=== PATIENT | male | born 1945 | race Caucasian/White ===

== ENCOUNTER 2016-04-30 12:57 | Inpatient (IN) | payer MEDICARE ==
--- NOTE | ~2016-04-30 | OP ---
Record Of Operation [facility] [address] [place]. [address] NAME: SAMMI BLANCAS JR : 41 STATUS : ADM IN PAT#: [id number] AGE: 70 ADM/REG DATE : 04/30/16 MR#: [id number] REPORT SERV DATE: 05/02/16 DICTATED BY: JUAN RAMON LIVE DATE: 05/02/16 REPORT STATUS : Draft TRANSCRIBED BY: DANO DATE: 05/02/16 DATE OF PROCEDURE: 05/02/2016 TIME: 1445 hours. PROCEDURE: Ultrasound guided left-sided thoracentesis. INDICATION: Moderate left-sided pleural effusion. PROCEDURE NATURAL SCIENCE CURATOR: Gibson Live PA-C. CONSENT: Consent was obtained from the patient prior to the procedure. Diagnostic and therapeutic indications for thoracentesis were discussed as well as risks including life- threatening bleeding, pneumothorax, and even the possible necessity of chest tube placement. Benefits and alternatives were explained at length. Prior to the procedure, imaging studies were reviewed with Dr. Cho who agreed with the indication to proceed with thoracentesis. PROCEDURE SUMMARY: A time out was performed verifying correct patient, procedure, site, and positioning. The patient's left side of the chest was prepped and draped in a sterile manner using chlorhexidine scrub after the appropriate level was percussed and confirmed by ultrasound. U/S images were obtained and placed within the chart. 2% lidocaine with epinephrine was then used to anesthetize the region. A finder needle was then used to aspirate clear to straw-colored fluid. A 10-blade scalpel was then used to make a small incision. The thoracentesis catheter was then threaded into the pleural space without difficulty. The patient had 825 mL of clear to straw-colored fluid removed. No immediate complications were noted during the procedure. A post-procedure chest x-ray is pending at the time of this dictation. The fluid will be sent for several studies. ESTIMATED BLOOD LOSS: Minimal. GBS/MODL Juan Ramon Live PA-C / [id number] CC: Jatin Carolina MD
--- NOTE | ~2016-04-30 | CN ---
Consultation Report [facility] [address] [place]. [address] NAME: SAMMI MELTON JR : 41 STATUS : ADM IN [facility]#: [id number] AGE: 70 ADM/REG DATE : 04/30/16 MR#: [id number] REPORT SERV DATE: 05/01/16 DICTATED BY: ARTHUR GIMENEZ IV DATE: 05/01/16 REPORT STATUS : Draft TRANSCRIBED BY: DANO DATE: 05/01/16 PULMONARY CONSULTATION. DATE OF CONSULTATION: 05/01/2016 REQUESTING PHYSICIAN: Jatin Carolina MD. REASON FOR REQUEST: Recurrent pleural effusion, dyspnea, and hypoxemia. HISTORY OF PRESENT ILLNESS: History was obtained from the patient and records. Mr. 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 He was admitted with weakness and increased shortness of breath. The patient was first evaluated December with a recurrent right-sided pleural effusion. It was exudative by fluid characteristics. It immediately recurred with evidence for non reexpansion of the lung for which the patient underwent thoracoscopy, with decortication, and talc pleurodesis. This demonstrated chronic pleuritis with all samples demonstrating no malignancy. The patient noted increasing shortness of breath for which he was seen in the outpatient office a week ago, demonstrating what appeared to be posterior recurrent fluid collection. He was supposed to be seen by Dr. Mcfadden last week and missed his appointment. He has a known history of carcinoid tumor in the liver for which he was just started on somatostatin therapy last week. On treatment, he has noted a decrease in the nausea, vomiting, and diarrhea. He has continued to feel very weak with decreased oral intake and increased shortness of breath with that has been more insidious than acute. He has had some increased swelling in his lower extremities without any calf pain. There is no known history of deep venous thrombosis. Because of progressive symptoms, he sought evaluation, he was admitted yesterday. He was initially treated as if he has COPD exacerbation with some comments of wheezing, however, the patient does not carry the diagnosis of obstructive lung disease. He denies any fever, chills, sweats, or hemoptysis. He is not on bronchitis medication. He recently underwent an overnight oximetry which was reportedly abnormal and will require supplemental oxygen at nighttime. PULMONARY HISTORY: Remarkable for no history of childhood asthma or known adult obstructive lung disease. He has had pneumonia in the past. He has a 10 pack year smoking history, having quit approximately 40 years ago. He worked for [employer] with chemical exposures. He is up to date on his immunizations. PAST MEDICAL HISTORY: 1. Carcinoid tumor in the liver. 2. Paroxysmal atrial fibrillation. 3. Chronic kidney disease. 4. Recurrent exudative pleural effusion on the right. PAST SURGICAL HISTORY: Consultation Report [place] [id number] [facility] [place]. [address] NAME: SAMMI MELTON JR : 41 STATUS : ADM IN [facility]#: [id number] AGE: 70 ADM/REG DATE : 04/30/16 MR#: [id number] REPORT SERV DATE: 05/01/16 DICTATED BY: ARTHUR GIMENEZ IV DATE: 05/01/16 REPORT STATUS : Draft TRANSCRIBED BY: DANO DATE: 05/01/16 1. Thoracotomy for resection of a diaphragmatic hernia and diaphragmatic repair. 2. Thoracoscopy with decortication and talc pleurodesis. ALLERGIES: PENICILLIN CAUSES A RASH. CURRENT MEDICATIONS: Cordarone 200 mg at bedtime, prednisone 40 mg daily, DuoNeb every four hours while awake, Flomax 0.4 mg at bedtime, Lomotil 2.5 mg twice a day, Lovenox 40 mg daily, Marinol 2.5 mg daily, and Protonix 40 mg daily. SOCIAL HISTORY: Remarkable for the remote tobacco use as above. He has very rare social alcohol use and no illicit drug use. He is and has four children. FAMILY HISTORY: Remarkable for mother with dementia. Father who of pulmonary embolism. REVIEW OF SYSTEMS: A 14-systems were reviewed and pertinent positives as noted above. PHYSICAL EXAMINATION: GENERAL: This is a chronically ill-appearing, elderly , thin male, in no current distress. VITAL SIGNS: Temperature is 97.5, pulse is 61, respiratory rate is 20, saturations are 97% on 2 L. Blood pressure is 117/64. HEENT: The patient is normocephalic and atraumatic. He has temporal wasting. Extraocular movements are intact. Pupils react to light. He has a nasal cannula in place. He has a Mallampati 2 airway with narrowing of the posterior pharyngeal space. NECK: Without any palpable lymphadenopathy or thyromegaly. CHEST: The patient has a right thoracotomy and thoracoscopy scars on his right chest. He has decreased breath sounds at the right base and approximately third of the way up posteriorly. No crackles, wheezes, or rhonchi are currently noted. CARDIOVASCULAR: Jugular venous pulsations appear to be approximately 5 to 6 cm. He has 2+ carotid upstrokes. No obvious bruit. He has a regular S1 and S2 with a 2/6 systolic murmur at the right upper sternal border to the apex. No clear S3 is noted. Peripheral pulses are diminished. ABDOMEN: Scaphoid, soft, there is a palpable liver. There is no splenomegaly or other masses. EXTREMITIES: Demonstrate muscle wasting. There is no cyanosis, clubbing, or palpable cords. He has 1+ pitting edema. NEUROLOGIC: Strength is 5-/5 and symmetric. Sensation is intact to light touch. LABORATORY AND DIAGNOSTIC DATA: Chest x-ray, as an outpatient demonstrates recurrence of the predominantly posterior medial loculated pleural effusion with an air fluid level. The current chest x-rays with hypoventilatory demonstrates increased hazy density throughout the right hemithorax more than on the previous study. CBC: Hemoglobin is 11.4, hematocrit 34.6, platelet count was 273,000, and white blood cell Consultation Report [address] [place]. [address] NAME: MAGALISSAMMI KALLI HAWK : 41 STATUS : ADM IN [facility]#: [id number] AGE: 70 ADM/REG DATE : 04/30/16 MR#: [id number] REPORT SERV DATE: 05/01/16 DICTATED BY: ARTHUR GIMENEZ IV DATE: 05/01/16 REPORT STATUS : Draft TRANSCRIBED BY: MODMayi DATE: 05/01/16 count 6, procalcitonin level is less than 0.05. Chemistry; sodium 140, potassium 4.5, chloride 108, bicarb 21, BUN 17, creatinine 1.25, and glucose of 133. ASSESSMENT/PLAN: 1. Respiratory. The patient has had some degree of fluid recurrence, we will do a chest CT scan to better define this. Oxygen to be provided as needed to maintain saturation at 90% to 94% range. It is not clear what options we have if there is recurrent fluid though PleurX catheter would be a possibility. There is no history of obstructive lung disease. We will DC the steroids and make DuoNeb as needed. 2. Hematologic. We will obtain a chest CT scan with contrast to rule out pulmonary embolism. The cause for shortness of breath, though, I think this is secondary to the fluid and his overall weakness. Lovenox to be continued for deep vein thrombosis prophylaxis. 3. Renal. He had increased renal insufficiency, on presentation, likely secondary dehydration. This is improved with IV fluids. He will be given Mucomyst x4 doses and we will follow his creatinine with contrast. 4. Neurologic. We will continue the Marinol for his appetite stimulant. Thank you for consulting us. We will follow the patient with you. NM/MODL Arthur Gimenez IV, M.D. / [id number] CC: Jatin Carolina MD
--- NOTE | ~2016-04-30 | HP ---
History And Physical [place] [address] [facility] [place]. [address] NAME: SAMMI BLANCAS JR : 41 STATUS : ADM IN [facility]#: [id number] AGE: 70 ADM/REG DATE : 04/30/16 MR#: [id number] REPORT SERV DATE: 04/30/16 DICTATED BY: SANCHEZ FRYE DATE: 04/30/16 REPORT STATUS : Draft TRANSCRIBED BY: DANO DATE: 04/30/16 DATE OF ADMISSION: 04/30/2016 CHIEF COMPLAINT: Increased shortness of breath. HISTORY OF PRESENT ILLNESS: This patient is a 70-year-old male, who presented to [facility] Emergency Room with complaints of increased shortness of breath ongoing for approximately three weeks, stating that he was unable to rest all night due to discomfort. He does deny any cough, fever, or chills. Does state that he has been having occasional nausea and vomiting. The patient does present with a history of metastatic carcinoid tumor, is followed by Dr. Feliciano Mead of [facility]. Last chemotherapy on 04/19/2016. The patient does state he is followed by his program therapist, Dr. Gimenez, recently. He does state that he is not on O2 at home. The patient does deny any chest pain, abdominal pain. He does state that he has had a 50-pound weight loss over the past 12 months. He does state his last bowel movement was this a.m., normal stool. Does state he has occasional bilateral lower extremity edema. PAST MEDICAL HISTORY: 1. Carcinoid tumor present in liver. 2. Right pleural effusion. 3. Decortication of the right lung. 4. Fatty liver. 5. Chronic kidney disease stage 3. 6. History of atrial fibrillation. PAST SURGICAL HISTORY: 1. Right thoracotomy. 2. Bronchoscopy. 3. Diaphragmatic hernia repair. 4. Intercostal nerve block. REVIEW OF SYSTEMS: Otherwise negative review of systems. PHYSICAL EXAMINATION: VITAL SIGNS: O2 saturation is 95% on room air, respirations are 18, pulse is 77, blood pressure is 115/63. GENERAL: This patient is alert and oriented in no acute distress. HEENT: Normocephalic, mucous membranes are moist. No JVD. CHEST: Breath sounds normal respiratory rate, diminished in the right base. CARDIOVASCULAR: Regular rate and rhythm. No murmurs, rubs, or gallops. ABDOMEN: Soft, nontender to touch. Bowel sounds are active. EXTREMITIES: No cyanosis. Slight edema bilateral. NEURO: The patient is alert and oriented. LABORATORY DATA: WBC is 10.4, hemoglobin 13.7, hematocrit 40.7, platelet count is 361. History And Physical [address] [address] NAME: SAMMI BLANCAS JR : 41 STATUS : ADM IN [facility]#: [id number] AGE: 70 ADM/REG DATE : 04/30/16 MR#: [id number] REPORT SERV DATE: 04/30/16 DICTATED BY: SANCHEZ FRYE DATE: 04/30/16 REPORT STATUS : Draft TRANSCRIBED BY: DANO DATE: 04/30/16 Sodium is 139, potassium is 4.3, chloride is 104, carbon dioxide is 25, BUN is 20, creatinine is 1.54, glucose is 109, calcium is 8.0, magnesium is 2.3, troponin is less than 0.02. Blood gas: PH is 7.44, pCO2 is 35, PO2 is 91, HCO3 is 23, oxygen saturation is 97.1. IMAGING: To be obtained. ASSESSMENT/PLAN: 1. Dyspnea. The patient has had complaints of ongoing shortness of breath increasing over the past three weeks stating that over the past 12 hours he was unable to sleep due to shortness of breath. The patient will be admitted to the hospital, consult pulmonology to see EzPAP provided as well as respiratory support. 2. History of trapped lung. The patient does present with a history of trapped lung. Again, we will have pulmonology to follow the patient. 3. Carcinoid tumor. The patient is under the care of Dr. Feliciano Mead, [facility]. Last chemotherapy 04/19/2016. Will consult Dr. Mead to follow the patient during his hospital stay. 4. Chronic kidney disease stage 3. The patient's noted creatinine of 1.54. We will continue to monitor. 5. History of right pleural effusion. 6. Code. The patient is a limited code. No ventilation. 7. The patient will be followed by Dr. Jatin Carolina during his hospital stay. [facility]/DANO Sanchez Frye NP / [id number]
--- NOTE | ~2016-04-30 | DS ---
Discharge Summary [facility] [address] [place]. [address] NAME: SAMMI BLANCAS JR : 41 STATUS : DIS IN PAT#: [id number] AGE: 70 ADM/REG DATE : 04/30/16 MR#: [id number] REPORT SERV DATE: 05/06/16 DICTATED BY: ROSANGELA PAYNE II DATE: 05/05/16 REPORT STATUS : Draft TRANSCRIBED BY: MODMayi DATE: 05/05/16 ADMISSION DATE: 04/30/2016 DISCHARGE DATE: 05/05/2016 DISCHARGE DIAGNOSES: 1. Acute on chronic hypoxic respiratory failure. 2. Chronic loculated right pleural effusion with history of right decortication. 3. Carcinoid tumor in the liver. 4. Acute kidney injury on chronic kidney disease, stage 2 to 3. 5. Generalized weakness and deconditioning. 6. History of SVT. 7. Edema. PROCEDURES: Left thoracentesis. CONSULTS: 1. Judah Gimenez M.D. with Pulmonary. 2. Feliciano Mead M.D. with [facility]. BRIEF HISTORY OF PRESENT ILLNESS: The patient is a 70-year-old male with the above history, who presented to [facility] due to worsening shortness of breath. For detailed history and physical examination, please see Josy Frye's note from 04/30/2016. HOSPITAL COURSE: Chest x-ray on admission showed stable postoperative volume loss on the right with stable chronic right effusion. Procalcitonin was normal. CTA of his chest showed right pleural fluid with loculations and air in the right lower chest associated with pleural thickening and calcification. There was left pleural fluid, minimal adjacent dependent atelectasis. Dr. Gimenez was consulted, and given the new left pleural effusion, a thoracentesis was done, which was transudative and negative for malignancy. The patient was previously being set up for nocturnal O2, however, currently hypoxic and will need continuous O2. He does have some degree of volume overload as he has edema and a mildly elevated BNP. His creatinine on admission was 1.54, which has come down to 1.15. The patient will be given a daily dose of p.r.n. Lasix for edema, and we will check a BMP in a week. He will be discharged home with home health. Follow up with Dr. Gimenez and Dr. Mead. DISCHARGE MEDICATIONS: 1. Prilosec 40 mg p.o. daily. 2. Flomax 0.4 mg p.o. at bedtime. 3. Zofran p.r.n. 4. Lasix 20 mg p.o. daily p.r.n. edema. 5. Marinol 2.5 mg p.o. before supper. 6. Lomotil 2.5 mg p.o. b.i.d. 7. Amiodarone 200 mg p.o. at bedtime. 8. KCl 20 mEq p.o. daily p.r.n. Lasix. Discharge Summary [address] [address] NAME: SAMMI BLANCAS : 41 STATUS : DIS IN PAT#: [id number] AGE: 70 ADM/REG DATE : 04/30/16 MR#: [id number] REPORT SERV DATE: 05/06/16 DICTATED BY: ROSANGELA PAYNE II DATE: 05/05/16 REPORT STATUS : Draft TRANSCRIBED BY: DANO DATE: 05/05/16 DISCHARGE INSTRUCTIONS: The patient will follow with Dr. Mccord and Dr. Mead as scheduled. [facility]ES/DANO Rosangela Payne II, MD / [id number] CC: Rosangela Payne II, MD
[~2016-04-30 12:57] MED LIST: ACET500CAP PO; CORDARONE PO; COZ25 PO; FLOMAX4 PO; LOM PO; NEXIUM40 PO; NORCO1 TA2 PO; PCET PO; PROBIOTIC; VITC500 PO; ZOFRAN4 PO
[2016-04-30 13:37] LABS: BASOPHILS 0.6 %; BASOPHILS ABSOLUTE 0.06 10/3/uL (0.0-0.16); EOSINOPHILS 0.6 %; EOSINOPHILS ABSOLUTE 0.06 10/3/uL (0.0-0.53); HEMOGLOBIN 13.7 g/dL (13.6-17.8); IMMATURE GRANULOCYTES 0.5 %; IMMATURE GRANULOCYTES ABSOLUTE 0.05 10/3/uL (0.0-0.11); LYMPHOCYTES 7.2 %; LYMPHOCYTES ABSOLUTE 0.75 10/3/uL (0.67-4.30); MEAN CORPUS HGB CONC 33.7 g/dL (32.0-36.0); MEAN CORPUSCULAR HEMOGLOB 29.9 pg (26.0-34.0); MEAN CORPUSCULAR VOLUME 88.9 fL (80-100); MEAN PLATELET VOLUME 9.6 fL (9.2-13.0); MONOCYTES ABSOLUTE 0.94 10/3/uL (0.21-1.20); NEUTROPHILS 82.1 %; NEUTROPHILS ABSOLUTE 8.55 10/3/uL (2.02-8.40); RBC DISTRIBUTION WIDTH 18.4 % (12.0-16.0); RED CELL COUNT 4.58 10/6/uL (4.7-6.1)
[2016-04-30 13:38] LABS: HEMATOCRIT 40.7 % (40.0-51.0); MANUAL DIFF NO %; PLATELET COUNT 361 10/3/uL (150-400); WHITE BLOOD CELLS 10.4 10/3/uL (4.5-10.5)
[2016-04-30 13:45] LABS: INTERNATIONAL NORMAL RATI 1.3 UNITS (-); PARTIAL THROMBO TIME 32.5 SEC (22.5-37.2); PROTIME (NOT ORD) 16.1 SEC (12.0-14.5)
[2016-04-30 13:53] LABS: BUN (BLOOD UREA NITROGEN) 20 MG/DL (6-23); CHEST PAIN PROFILE TAT 0 Hrs 21 Mins; CHLORIDE, SERUM 104 MMOL/L (96-112); CO2 (CARBON DIOXIDE) 25 MMOL/L (24-34); CREATININE 1.54 MG/DL (0.70-1.30); GFR AFRICAN AMERICAN 51 ML/MIN (>=60); GFR NON AFRICAN AMERICAN 44 ML/MIN (>=60); GLUCOSE, SERUM 109 MG/DL (60-99); POTASSIUM, SERUM 4.3 MMOL/L (3.5-5.3); SODIUM, SERUM 139 MMOL/L (135-148); TROPONIN I <0.02 NG/ML (<0.05)
[2016-04-30 15:05] LABS: ALLENS TEST Pos; BE (BASE EXCESS) -0.7 MEQ/L (0 +/- 2.5); CARBOXYHEMOGLOBIN 1.3 % (0-3); DEVICE NC; HEMOBLOGIN CONTENT 12.3 G/DL (14-18); INSTRUMENT SERIAL # 8087; METHEMOGLOBIN 0.3 % (0-3); O2 CONTENT 16.6 VOL% (18-24); PCO2 (CO2 TENSION) 35 MMHG (35-45); PO2 (O2 TENSION) 91 MMHG (79-93); SAMPLE Arterial; pH 7.44 (7.37-7.43)
[2016-04-30] MEDS ORDERED: PRILOSEC40 MG PO (15:07)
[2016-04-30] MEDS ORDERED: FLOMAX4 PO (15:08)
[2016-04-30] MEDS ORDERED: LOM PO (15:08)
[2016-04-30] MEDS ORDERED: CHEMO IJ (15:08)
[2016-04-30] MEDS ORDERED: MARI2.5 PO (15:08)
[2016-04-30] MEDS ORDERED: ZOFRAN4 PO (15:09)
[2016-04-30] MEDS ORDERED: CORDARONE PO (15:14)
[2016-04-30 22:55] LABS: ASCORBIC ACID (UR NOT ORDER) NEG (NEG); BILIRUBIN, URINE NEGATIVE (NEG); KETONE, URINE TRACE MG/DL (NEG); LEUKOCYTE ESTERASE(NOT OR NEG (NEG); WBC (NOT ORDERED) (RFLEX) 11 (0-5)
[2016-05-01 07:27] LABS: BASOPHILS 0 %; EOSINOPHILS 0 %; HEMOGLOBIN 11.4 g/dL (13.6-17.8); IMMATURE GRANULOCYTES 0.2 %; IMMATURE GRANULOCYTES ABSOLUTE 0.01 10/3/uL (0.0-0.11); LYMPHOCYTES 8.4 %; MEAN CORPUS HGB CONC 32.9 g/dL (32.0-36.0); MEAN CORPUSCULAR HEMOGLOB 29.5 pg (26.0-34.0); MEAN CORPUSCULAR VOLUME 89.4 fL (80-100); MEAN PLATELET VOLUME 9.4 fL (9.2-13.0); MONOCYTES 3.5 %; MONOCYTES ABSOLUTE 0.21 10/3/uL (0.21-1.20); NEUTROPHILS 87.9 %; NEUTROPHILS ABSOLUTE 5.23 10/3/uL (2.02-8.40); PLATELET COUNT 273 10/3/uL (150-400); RBC DISTRIBUTION WIDTH 18.5 % (12.0-16.0); RED CELL COUNT 3.87 10/6/uL (4.7-6.1)
[2016-05-01 07:28] LABS: HEMATOCRIT 34.6 % (40.0-51.0); MANUAL DIFF NO %
[2016-05-01 07:37] LABS: BUN (BLOOD UREA NITROGEN) 17 MG/DL (6-23); CALCIUM, SERUM 7.4 MG/DL (8.5-10.4); CHLORIDE, SERUM 108 MMOL/L (96-112); CO2 (CARBON DIOXIDE) 21 MMOL/L (24-34); CREATININE 1.25 MG/DL (0.70-1.30); GFR AFRICAN AMERICAN 66 ML/MIN (>=60); GFR NON AFRICAN AMERICAN 57 ML/MIN (>=60); GLUCOSE, SERUM 133 MG/DL (60-99); POTASSIUM, SERUM 4.5 MMOL/L (3.5-5.3); SODIUM, SERUM 140 MMOL/L (135-148)
[2016-05-02 11:05] LABS: TOTAL PROTEIN 5.5 G/DL (6.0-8.5)
[2016-05-02 15:59] LABS: GLUCOSE BODY FL (NOT ORD) 136 MG/DL; LDH BODY FLUID (NOT ORD) 60 U/L; PROTEIN BODY FLUID 1.3 G/DL
[2016-05-02 16:24] LABS: BD FL LYMPH (NOT ORD) 22 %; BD FL SOURCE (NOT ORD) PLEURAL; BF BASO (NOT OF) 1 %; BF LARGE MONONUCLEAR 71 %; BODY FLUID EOS (NOT ORD) 0 %; BODY FLUID SEG (NOT ORD) 6 %
[2016-05-02 16:43] LABS: BF TOTAL CELL CT (NOT ORD 125 /MM3; BODY FLUID RBC (NOT ORD) 276 /MM3
[2016-05-03 05:53] LABS: BASOPHILS 0 %; EOSINOPHILS 0 %; HEMATOCRIT 33.2 % (40.0-51.0); IMMATURE GRANULOCYTES 0.3 %; IMMATURE GRANULOCYTES ABSOLUTE 0.03 10/3/uL (0.0-0.11); LYMPHOCYTES 9.2 %; LYMPHOCYTES ABSOLUTE 0.93 10/3/uL (0.67-4.30); MEAN CORPUS HGB CONC 33.1 g/dL (32.0-36.0); MEAN CORPUSCULAR HEMOGLOB 29.5 pg (26.0-34.0); MONOCYTES 1.8 %; MONOCYTES ABSOLUTE 0.18 10/3/uL (0.21-1.20); NEUTROPHILS 88.7 %; NEUTROPHILS ABSOLUTE 8.95 10/3/uL (2.02-8.40); PLATELET COUNT 260 10/3/uL (150-400); RBC DISTRIBUTION WIDTH 18.6 % (12.0-16.0); RED CELL COUNT 3.73 10/6/uL (4.7-6.1)
[2016-05-03 05:56] LABS: MANUAL DIFF NO %; WHITE BLOOD CELLS 10.1 10/3/uL (4.5-10.5)
[2016-05-03 06:09] LABS: BUN (BLOOD UREA NITROGEN) 18 MG/DL (6-23); CALCIUM, SERUM 7.6 MG/DL (8.5-10.4); CHLORIDE, SERUM 108 MMOL/L (96-112); CO2 (CARBON DIOXIDE) 23 MMOL/L (24-34); CREATININE 1.01 MG/DL (0.70-1.30); GFR AFRICAN AMERICAN 86 ML/MIN (>=60); GFR NON AFRICAN AMERICAN 74 ML/MIN (>=60); POTASSIUM, SERUM 4.4 MMOL/L (3.5-5.3); SODIUM, SERUM 139 MMOL/L (135-148)
[2016-05-03 06:10] LABS: GLUCOSE, SERUM 104 MG/DL (60-99)
[2016-05-04 05:08] LABS: BASOPHILS 0 %; EOSINOPHILS 0.2 %; EOSINOPHILS ABSOLUTE 0.02 10/3/uL (0.0-0.53); HEMATOCRIT 33.9 % (40.0-51.0); HEMOGLOBIN 11.2 g/dL (13.6-17.8); IMMATURE GRANULOCYTES 0.2 %; IMMATURE GRANULOCYTES ABSOLUTE 0.02 10/3/uL (0.0-0.11); LYMPHOCYTES 6.7 %; LYMPHOCYTES ABSOLUTE 0.57 10/3/uL (0.67-4.30); MEAN CORPUSCULAR HEMOGLOB 29.4 pg (26.0-34.0); MEAN PLATELET VOLUME 9.3 fL (9.2-13.0); MONOCYTES 9.6 %; MONOCYTES ABSOLUTE 0.82 10/3/uL (0.21-1.20); NEUTROPHILS 83.3 %; PLATELET COUNT 252 10/3/uL (150-400); RBC DISTRIBUTION WIDTH 18.5 % (12.0-16.0); RED CELL COUNT 3.81 10/6/uL (4.7-6.1); WHITE BLOOD CELLS 8.5 10/3/uL (4.5-10.5)
[2016-05-04 05:11] LABS: MANUAL DIFF NO %
[2016-05-04 05:26] LABS: BUN (BLOOD UREA NITROGEN) 18 MG/DL (6-23); CALCIUM, SERUM 7.6 MG/DL (8.5-10.4); CHLORIDE, SERUM 106 MMOL/L (96-112); CO2 (CARBON DIOXIDE) 26 MMOL/L (24-34); CREATININE 1.15 MG/DL (0.70-1.30); GFR AFRICAN AMERICAN 73 ML/MIN (>=60); GFR NON AFRICAN AMERICAN 63 ML/MIN (>=60); GLUCOSE, SERUM 105 MG/DL (60-99); POTASSIUM, SERUM 3.7 MMOL/L (3.5-5.3); SODIUM, SERUM 139 MMOL/L (135-148)
[2016-05-05] MEDS ORDERED: L20 PO (09:42)
[2016-05-05] MEDS ORDERED: KLOR-CON M2020 MEQ PO (09:51)
[2016-08-01] MEDS ORDERED: PACERONE100 MG PO (11:52)
[2016-08-01] MEDS ORDERED: PRILO PO (11:52)
== END 2016-05-05 11:55 | disposition home health service (06) | DRG 186 ==
LOC: ER 12:57 → 4EA 17:27
PROVIDERS: Emergency Medicine; Internal Medicine; Nurse Practitioner Adult Health; Physician Assistant Medical
PROC: 0W9B30Z Drainage of Left Pleural Cavity with Drainage Device, Percutaneous Approach (ICD-10-PCS; principal; 2016-05-02 14:10)
DX: J90 Pleural effusion, not elsewhere classified (principal); J96.21 Acute and chronic respiratory failure with hypoxia; E43 Unspecified severe protein-calorie malnutrition; N17.9 Acute kidney failure, unspecified; Z68.1 Body mass index [BMI] 19.9 or less, adult; D3A.098 Benign carcinoid tumors of other sites; N18.2 Chronic kidney disease, stage 2 (mild)
CPT/HCPCS: 36600; 71010; 71275; 80048; 81001; 82805; 82945; 82962; 83615; 83735; 83880; 83986; 84145; 84155; 84157; 84484; 85025; 85610; 85730; 87015; 87040; 87070; 87102; 87116; 87205; 88112; 88305; 89051; 93005; 94640; 96374; 97161-GP; 99291; A9270-GY; G8978-CH-GP; G8979-CH-GP; G8980-CH-GP; J2930; Q9967

== ENCOUNTER 2016-06-15 13:50 | Inpatient (IN) | payer MEDICARE ==
--- NOTE | ~2016-06-15 | DS ---
Discharge Summary [facility] [address] [place]. [address] NAME: SAMMI BLANCAS JR : 41 STATUS : DIS IN PAT#: [id number] AGE: 70 ADM/REG DATE : 06/16/16 MR#: [id number] REPORT SERV DATE: 06/21/16 DICTATED BY: DATE: REPORT STATUS : Draft TRANSCRIBED BY: MODL DATE: 06/20/16 ADMISSION DATE: 06/16/2016 DISCHARGE DATE: 06/20/2016 DISCHARGE DIAGNOSES: 1. Clostridium difficile first episode. 2. Chronic severe malnutrition. 3. Chronic hypotension. 4. Chronic nausea and vomiting. 5. Bilateral lower extremity edema, chronic. 6. Chronic respiratory failure. 7. Low-grade neuroendocrine tumor of liver. 8. Chronic kidney disease, stage 3. CONSULTATIONS: Feliciano Mead M.D., [facility]. PERTINENT TESTS AND PROCEDURES: Stool Studies: Final result: Clostridium difficile by PCR positive. Parasite screen negative. Fecal leuk's negative. ALLERGIES: INTRACTABLE NAUSEA, VOMITING, AND DIARRHEA. PROTEIN CALORIE MALNUTRITION. HOSPITAL COURSE: Please refer to history and physical dated 06/16/2016 provided by Elsa Harris, nurse practitioner, for complete details pertaining to the patient's initial presentation upon admission and health history. Briefly, the patient is a 70-year-old male with a health history to include low-grade neuroendocrine tumor of the liver, chronic right-sided pleural effusion, hypertension, COPD, chronic kidney disease stage 3, volume overload, and diaphragmatic hernia. The patient was referred for direct admission to [facility] on 06/16/2016 by his primary care physician, Dr. Joo Azevedo, for evaluation of continued nausea, vomiting, intractable diarrhea, and protein calorie malnutrition. Initial diagnostic evaluation included stool study, which reported positive result for Clostridium difficile. The patient was placed on Vancocin 125 mg p.o. every 6 hours. 1. Clostridium difficile, this is the patient's first episode. The patient denies recent use of antibiotics. The patient does have history of taking Prilosec daily long-term treatment. The patient will receive a tapering dose of Vancocin for extended therapy for at least six weeks secondary to age and multiple comorbidities which places the patient at high risk for recurrence of C. diff. The patient's diarrhea finally started swelling yesterday and the patient reports producing one softly formed stool today. Social Work was consulted for med assist to acquire Vancocin outpatient. The patient will tow picker prescription at Pharmacy upon discharge. Prescription costs approximately 44 dollars. 2. Chronic severe malnutrition, this is multifactorial to include history of chronic nausea and vomiting times several months in the setting of low-grade neuroendocrine Discharge Summary [place] [id number] [place]. [address] NAME: SAMMI BLANCAS JR : 41 STATUS : DIS IN PAT#: [id number] AGE: 70 ADM/REG DATE : 06/16/16 MR#: [id number] REPORT SERV DATE: 06/21/16 DICTATED BY: DATE: REPORT STATUS : Draft TRANSCRIBED BY: MODL DATE: 06/20/16 tumor of the liver and multiple comorbidities. The patient's oral intake has continued to decline over the past several months, but has been significantly decreased over the past few weeks. This may be related to recent diagnosis of C. diff. The patient will continue home dose of Marinol. The patient and were educated on ways to four to five meals to increase calories. Also educated to consume nutritional shakes up to three times daily. The patient reports dairy has recently been upsetting his stomach. I advised two-week trial dairy free to rule out lactose intolerance. 3. Chronic hypotension. The patient has history of low blood pressure. The patient's blood pressure initially decreased upon admission secondary to dehydration related to intractable diarrhea. The patient responded well to IV fluid bolus. Cortisol a.m. was checked and was within normal limits. TSH was elevated; however, free T4 was normal. 4. Chronic nausea and vomiting. This has been present for several months prior to new diagnosis of neuroendocrine tumor of the liver in January 2016. Condition has most likely been recently exacerbated by a new diagnosis of C. diff. Nausea and vomiting are much improved since starting treatment for C. diff. The patient to continue Zofran as needed. 5. Chronic bilateral lower extremity edema. The patient has diuretics at home to be used as needed; however, no diuretics during this admission secondary to intractable diarrhea in the setting of hypotension. The patient's bilateral lower extremity edema has remained fairly stable and is improved today 1 to 2+ pitting. Continue home Lasix as needed. 6. Chronic respiratory failure. The patient is home O2 dependent. The patient denies ever having history of COPD. The patient has history of right pleural effusion recurrent and is status post right thoracoscopy/decortication/pleurodesis. The patient to follow up with Dr. Gimenez routinely. 7. Low-grade neuroendocrine tumor of the liver. This was a new diagnosis as of January 2016. The patient is followed by Dr. Mead at [facility]. The patient is currently being treated with lanreotide injections every 28 days. First injection was on 04/26/2016, second on 05/24/2016, third is pending for 06/21/2016. 8. Chronic kidney disease, stage 3. The patient's creatinine was mildly elevated upon admission secondary to dehydration, but has now returned to baseline. Creatinine is 1.12 at the time of discharge. DISCHARGE CONDITION: At the time of discharge, the patient is hemodynamically stable. DISCHARGE DIET: Regular diet to include calorie fortification and nutritional shake supplements in addition to trial of dairy avoidance to rule out lactose intolerance. DISCHARGE MEDICATIONS: 1. Amiodarone 200 mg tablet p.o. every 48 hours. 2. Marinol 2.5 mg tablet p.o. daily before supper. 3. Flomax 0.4 mg tablet p.o. at bedtime. 4. Vancocin 125 mg p.o. every 6 hours, extended tapering dose to continue through six weeks. 5. Tylenol 350 mg tablet, take two tabs every 4 hours as needed. 6. Zofran 4 mg tablet p.o. three times daily as needed. 7. Prilosec 40 mg tablet p.o. daily. Discharge Summary [address] [address] NAME: ALFREDO BLANCASYDSantana MAHAN JR : 41 STATUS : DIS IN PAT#: [id number] AGE: 70 ADM/REG DATE : 06/16/16 MR#: [id number] REPORT SERV DATE: 06/21/16 DICTATED BY: DATE: REPORT STATUS : Draft TRANSCRIBED BY: DANO DATE: 06/20/16 8. Lomotil 2.5 mg tablet p.o. twice daily as needed. The patient was educated to avoid all antidiarrheals in the setting of C. diff. 9. Chemotherapy injection every 28 days to be administered per Oncology. 10.Lasix 20 mg tablet p.o. daily as needed. 11.Klor-Con 10 mEq tablet p.o. daily as needed. DISCHARGE INSTRUCTIONS: 1. Follow up with Dr. Feliciano Mead, at [facility] on 06/21/2016. 2. [address] Dr. Gimenez's office to reschedule missed office visit that was to occur during this hospitalization. The patient and his spouse were educated to return to the emergency department for any acute onset of fever 100.4 degrees or higher lasting more than one hour, recurrence of intractable diarrhea, nausea, vomiting, inability to maintain oral nutrition status or any other health concerns that are deviations from his baseline status at the time of this discharge. PRIMARY CARE PHYSICIAN: Joo Azevedo M.D. PRIMARY ONCOLOGIST: Feliciano Mead M.D. PRIMARY HR REPRESENTATIVE: Judah Gimenez M.D. [facility]/DANO Elsa Harris NP-C / [id number] CC: MD Joo Llanos II, M.D. Nathan Mull IV, M.D. Darrell Johnson, M.D.
--- NOTE | ~2016-06-15 | HP ---
History And Physical [place] [address] [facility]. [address] NAME: SAMMI BLANCAS JR : 41 STATUS : ADM IN PAT#: [id number] AGE: 70 ADM/REG DATE : 06/15/16 MR#: [id number] REPORT SERV DATE: 06/16/16 DICTATED BY: DATE: REPORT STATUS : Draft TRANSCRIBED BY: MODL DATE: 06/15/16 DATE OF ADMISSION: 06/15/2016 CHIEF COMPLAINT: Intractable nausea, vomiting, and diarrhea and protein calorie malnutrition. POINT OF ENTRY: Direct admission. Referred by primary care physician, Dr. Joo Azevedo. HISTORY OF PRESENTING ILLNESS: The patient's history was obtained through interview with the patient and his spouse coupled with review of [facility] records and office notes provided by Dr. Joo Azevedo, Internal Medicine, and Dr. Mead, [facility]. The patient is a 70-year-old male with a past medical history to include low-grade neuroendocrine tumor of the liver, chronic right-sided pleural effusion, hypertension, COPD, diaphragmatic hernia, SVT, volume overload/edema, and chronic kidney disease stage III. The patient was recently diagnosed with low-grade neuroendocrine cancer. Biopsy of the liver 01/14/2017 with large left lobe lesion and single small right lobe lesion. Primary source unknown. The patient is under the care of Dr. Mead at [facility] and is currently undergoing treatment with lanreotide injections every 28 days. The patient's first injection was 04/26/2016 and second injection was on 05/24/2016. The patient reported that he presented to his primary care office last for followup visit, to include evaluation for continued nausea, vomiting, and diarrhea. reports these issues have been chronic since last year prior to diagnosis of neuroendocrine tumor of liver, however, these symptoms have increased in severity since around 05/15/2016. stated that primary care physician contacted the patient by phone today and recommended direct admission based on lab work that suggested protein calorie malnutrition in the setting of intractable nausea, vomiting, and diarrhea. The patient reports at least one to two soft to watery stools per day. The patient also complains of chronic nausea that is accompanied with intermittent vomiting usually at least one time daily. The patient is also suffering from an unintentional weight loss. Maximum weight was approximately 180 pounds in March of 2015. The patient's current weight is 134 pounds. The patient's weight was reported to be 155 pounds in December 2015 and has averaged between 134 and 136 pounds since February 2016. The patient reports that he is able to consume p.o. intake throughout each day, but is concerned that amount is significantly reduced and insufficient to maintain nutritional requirements. The patient also has history of bilateral lower extremity edema. reports that this History And Physical [place] [address] [facility]. [address] NAME: SAMMI BLANCAS JR : 41 STATUS : ADM IN PAT#: [id number] AGE: 70 ADM/REG DATE : 06/15/16 MR#: [id number] REPORT SERV DATE: 06/16/16 DICTATED BY: DATE: REPORT STATUS : Draft TRANSCRIBED BY: DANO DATE: 06/15/16 condition worsened over the weekend and this past Monday right lower extremity with clear fluid that has since resolved. REVIEW OF SYSTEMS: CONSTITUTIONAL: No fever, sweats, or rigors. EYES: No blurred or double vision. No history of glaucoma or cataracts. HEENT: No headache or hearing loss. CARDIOVASCULAR: No chest pain, palpitations, or syncopal events. RESPIRATORY: Positive for chronic shortness of breath with new increased dyspnea on exertion. GASTROINTESTINAL: Positive for chronic nausea now with vomiting and diarrhea. MUSCULOSKELETAL: Negative for arthralgia, myalgia, and arthritis. INTEGUMENT: Negative for rash and nonhealing wounds. NEUROLOGIC: Positive for weakness. Negative for history of stroke, TIA, and seizure. HEMATOLOGIC: Positive for anemia. PSYCHIATRIC: Negative for depression, bipolar, and anxiety. : Negative for dysuria, hematuria, and nephrolithiasis. ENDOCRINE: Negative for diabetes and thyroid disease. CODE STATUS: The patient expressed his wish to be a limited DNR compressions only, no intubation. HOME MEDICATIONS: Awaiting reconciliation of home med list per Pharmacy. ALLERGIES: PER REVIEW OF RECORDS, PENICILLIN, REACTION; HIVES AND ITCHING. PAST MEDICAL HISTORY: 1. 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 2. Chronic respiratory failure. 3. Chronic right-sided pleural effusion with trapped lung. 4. Hypertension. 5. Chronic obstructive pulmonary disease. 6. Chronic kidney disease stage 3. 7. Diaphragmatic hernia with omentum herniating into chest. 8. SVT history. 9. Systolic murmur. 10.Volume overload/edema. PAST SURGICAL HISTORY: 1. Right thoracoscopy/posterolateral thoracotomy/diaphragmatic hernia repair in April 2015. 2. Right-sided thoracentesis in December 2015. 3. Left-sided thoracentesis on 05/02/2016. 4. Bronchoscopy/redo of right thoracoscopy with decortication/talc pleurodesis, intercostal nerve block on 03/03/2016. SOCIAL HISTORY: The patient is and resides with his spouse. 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. [address] NAME: SAMMI BLANCAS : 41 STATUS : ADM IN [facility]#: [id number] AGE: 70 ADM/REG DATE : 06/15/16 MR#: [id number] REPORT SERV DATE: 06/16/16 DICTATED BY: DATE: REPORT STATUS : Draft TRANSCRIBED BY: MODL DATE: 06/15/16 fitter. He is a remote tobacco user having smoked approximately one pack per day for seven years approximately 40 years ago. Rare use of alcohol. FAMILY HISTORY: Was obtained through review of [facility] note. The patient's mother at age 93. The patient's father at age 83. PHYSICAL EXAMINATION: VITAL SIGNS: Oxygen saturation 97% on 2 L, blood pressure 103/60, heart rate 77, temperature 97.3, weight 134 pounds. NEURO: The patient is alert with no focal deficits. GENERAL: The patient is cooperative and in no apparent distress. Awake, alert, and oriented x3. NECK: Upper and lower dentures intact. CHEST: No tenderness to palpation. LUNGS: Shallow inspiratory effort. Decreased at right base. No wheezes. CARDIOVASCULAR: Regular rate and rhythm. 2/6 systolic murmur. ABDOMEN: Soft and nontender. Bowel sounds present throughout all quadrants. EXTREMITIES: 2 to 3+ pitting edema to bilateral lower extremities. Temporal muscle wasting. PSYCH: Normal affect. Demonstrates good decision making ability. ASSESSMENT AND PLAN: 1. Chronic nausea, vomiting, and diarrhea. Symptoms have been present since last year prior to diagnosis of neuroendocrine tumor of liver. Symptoms have increased in severity since the 05/14/2016. Underlying etiology likely multifactorial to include side effect of lanreotide and carcinoid syndrome symptoms. Schedule Zofran 8 mg p.o. 30 minutes before every meal. Stool studies pending to include Clostridium difficile, ova and parasite screen, and fecal leukocytes. 2. Unintentional weight loss with protein calorie malnutrition. This is multifactorial to include neuroendocrine tumor of the liver with carcinoid syndrome symptoms. Nutrition has been consulted to include 24-hour calorie count, ProSource 30 mL three times daily in addition to Ensure three times daily. The patient is not a candidate for ProcalAmine secondary to volume overload. The patient declines recommendation to consider PEG tube placement for supplemental tube feedings. TPN was also discussed, however, this is not a long-term solution to the patient's nutritional status deficits. The patient also declined consideration for TPN. Continue to encourage p.o. intake and educate the patient on importance of consuming smaller frequent meals throughout the day with nutritional shake supplements. 3. Bilateral lower extremity edema. The patient has history of same in the past. The patient's albumin and prealbumin are both low resulting in third spacing of fluid. Per 's report, recent weeping of right lower extremity over the weekend, however, there were no current signs or symptoms and skin to bilateral lower extremities is intact with no indication of infection. Consider careful diuresing after renal function labs are reviewed. 4. Low-grade neuroendocrine tumor of liver. The patient is currently under the care of Dr. Mead at [facility] and is receiving lanreotide injections every 28 days status post two treatments. 5. Hypertension. Continue home medications after reconciliation of home med list. History And Physical [address] [address] NAME: SAMMI BLANCAS JR : 41 STATUS : ADM IN [facility]#: [id number] AGE: 70 ADM/REG DATE : 06/15/16 MR#: [id number] REPORT SERV DATE: 06/16/16 DICTATED BY: DATE: REPORT STATUS : Draft TRANSCRIBED BY: DANO DATE: 06/15/16 6. Chronic kidney disease stage 3. Monitor renal function. 7. Chronic obstructive pulmonary disease/chronic respiratory failure. The patient is home O2 dependent. Supplemental oxygen, per nasal cannula to maintain oxygen saturation at 92% or greater. 8. Recurrent right pleural effusion. The patient is status post right thoracoscopy/decortication/pleurodesis. Monitor the patient's respiratory status carefully. PRIMARY ONCOLOGIST: Dr. Feliciano Mead. PRIMARY CARE PHYSICIAN: Dr. Joo Azevedo. The care of this patient will be transferred to the service of Dr. Mannie Sánchez. UNRULY/DANO Elsa Harris NP-[place] / [id number] CC: MD Joo Llanos II, M.D.
[~2016-06-15 13:50] MED LIST changes: +CHEMO IJ; +KLOR-CON M2020 MEQ PO; +L20 PO; +MARI2.5 PO; +PRILOSEC40 MG PO
[2016-06-15 16:38] LABS: BASOPHILS 0.2 %; BASOPHILS ABSOLUTE 0.01 10/3/uL (0.0-0.16); EOSINOPHILS 0.6 %; EOSINOPHILS ABSOLUTE 0.03 10/3/uL (0.0-0.53); HEMOGLOBIN 13.2 g/dL (13.6-17.8); IMMATURE GRANULOCYTES 0.2 %; IMMATURE GRANULOCYTES ABSOLUTE 0.01 10/3/uL (0.0-0.11); LYMPHOCYTES 12.1 %; LYMPHOCYTES ABSOLUTE 0.65 10/3/uL (0.67-4.30); MEAN CORPUS HGB CONC 32.3 g/dL (32.0-36.0); MEAN CORPUSCULAR HEMOGLOB 30.1 pg (26.0-34.0); MEAN PLATELET VOLUME 9.7 fL (9.2-13.0); MONOCYTES 7.6 %; MONOCYTES ABSOLUTE 0.41 10/3/uL (0.21-1.20); NEUTROPHILS 79.3 %; NEUTROPHILS ABSOLUTE 4.26 10/3/uL (2.02-8.40); PLATELET COUNT 233 10/3/uL (150-400); RBC DISTRIBUTION WIDTH 18.5 % (12.0-16.0); RED CELL COUNT 4.39 10/6/uL (4.7-6.1); WHITE BLOOD CELLS 5.4 10/3/uL (4.5-10.5)
[2016-06-15 16:46] LABS: INTERNATIONAL NORMAL RATI 1.3 UNITS (-)
[2016-06-15 16:48] LABS: HEMATOCRIT 40.9 % (40.0-51.0); MANUAL DIFF NO %; MEAN CORPUSCULAR VOLUME 93.2 fL (80-100)
[2016-06-15 16:57] LABS: A/G RATIO 0.8 (0.7-1.9); ALBUMIN 2.9 G/DL (3.5-5.0); ALKALINE PHOSPHATASE 126 U/L (45-117); BUN (BLOOD UREA NITROGEN) 15 MG/DL (6-23); CALCIUM, SERUM 8.7 MG/DL (8.5-10.4); CHLORIDE, SERUM 101 MMOL/L (96-112); CO2 (CARBON DIOXIDE) 28 MMOL/L (24-34); CREATININE 1.29 MG/DL (0.70-1.30); GFR AFRICAN AMERICAN 64 ML/MIN (>=60); GFR NON AFRICAN AMERICAN 55 ML/MIN (>=60); GLOBULIN 3.5 G/DL (2.5-4.1); GLUCOSE, SERUM 105 MG/DL (60-99); PHOSPHORUS, SERUM 3.9 MG/DL (2.5-4.5); POTASSIUM, SERUM 4.4 MMOL/L (3.5-5.3); SGOT(AST) 23 U/L (5-40); SGPT(ALT) 20 U/L (5-65); SODIUM, SERUM 138 MMOL/L (135-148); TOTAL BILIRUBIN 1.2 MG/DL (0-1.2); TOTAL PROTEIN 6.4 G/DL (6.0-8.5)
[2016-06-16 05:14] LABS: BASOPHILS 0.9 %; BASOPHILS ABSOLUTE 0.04 10/3/uL (0.0-0.16); EOSINOPHILS 1.1 %; EOSINOPHILS ABSOLUTE 0.05 10/3/uL (0.0-0.53); HEMOGLOBIN 10.9 g/dL (13.6-17.8); IMMATURE GRANULOCYTES 0.2 %; IMMATURE GRANULOCYTES ABSOLUTE 0.01 10/3/uL (0.0-0.11); LYMPHOCYTES ABSOLUTE 0.63 10/3/uL (0.67-4.30); MEAN CORPUS HGB CONC 33.1 g/dL (32.0-36.0); MEAN CORPUSCULAR HEMOGLOB 30.5 pg (26.0-34.0); MEAN CORPUSCULAR VOLUME 92.2 fL (80-100); MEAN PLATELET VOLUME 9.5 fL (9.2-13.0); MONOCYTES 10.2 %; MONOCYTES ABSOLUTE 0.46 10/3/uL (0.21-1.20); NEUTROPHILS 73.6 %; NEUTROPHILS ABSOLUTE 3.31 10/3/uL (2.02-8.40); PLATELET COUNT 203 10/3/uL (150-400); RBC DISTRIBUTION WIDTH 18.7 % (12.0-16.0); RED CELL COUNT 3.57 10/6/uL (4.7-6.1); WHITE BLOOD CELLS 4.5 10/3/uL (4.5-10.5)
[2016-06-16 05:16] LABS: HEMATOCRIT 32.9 % (40.0-51.0); MANUAL DIFF NO %
[2016-06-16 05:23] LABS: BUN (BLOOD UREA NITROGEN) 18 MG/DL (6-23); CALCIUM, SERUM 8.2 MG/DL (8.5-10.4); CHLORIDE, SERUM 105 MMOL/L (96-112); CO2 (CARBON DIOXIDE) 32 MMOL/L (24-34); CREATININE 1.27 MG/DL (0.70-1.30); GFR AFRICAN AMERICAN 65 ML/MIN (>=60); GFR NON AFRICAN AMERICAN 56 ML/MIN (>=60); GLUCOSE, SERUM 86 MG/DL (60-99); POTASSIUM, SERUM 4.6 MMOL/L (3.5-5.3); SODIUM, SERUM 142 MMOL/L (135-148)
[2016-06-17 05:07] LABS: BASOPHILS 0.7 %; BASOPHILS ABSOLUTE 0.03 10/3/uL (0.0-0.16); EOSINOPHILS 1.1 %; EOSINOPHILS ABSOLUTE 0.05 10/3/uL (0.0-0.53); HEMOGLOBIN 11.2 g/dL (13.6-17.8); IMMATURE GRANULOCYTES 0.2 %; IMMATURE GRANULOCYTES ABSOLUTE 0.01 10/3/uL (0.0-0.11); LYMPHOCYTES 14.3 %; LYMPHOCYTES ABSOLUTE 0.65 10/3/uL (0.67-4.30); MEAN CORPUS HGB CONC 32.9 g/dL (32.0-36.0); MEAN CORPUSCULAR HEMOGLOB 30.4 pg (26.0-34.0); MEAN CORPUSCULAR VOLUME 92.4 fL (80-100); MEAN PLATELET VOLUME 9.6 fL (9.2-13.0); MONOCYTES 10.5 %; MONOCYTES ABSOLUTE 0.48 10/3/uL (0.21-1.20); NEUTROPHILS 73.2 %; NEUTROPHILS ABSOLUTE 3.33 10/3/uL (2.02-8.40); PLATELET COUNT 206 10/3/uL (150-400); RBC DISTRIBUTION WIDTH 19.1 % (12.0-16.0); RED CELL COUNT 3.68 10/6/uL (4.7-6.1); WHITE BLOOD CELLS 4.6 10/3/uL (4.5-10.5)
[2016-06-17 05:11] LABS: MANUAL DIFF NO %
[2016-06-17 05:32] LABS: BUN (BLOOD UREA NITROGEN) 20 MG/DL (6-23); CALCIUM, SERUM 8.2 MG/DL (8.5-10.4); CHLORIDE, SERUM 107 MMOL/L (96-112); CREATININE 1.29 MG/DL (0.70-1.30); GFR AFRICAN AMERICAN 64 ML/MIN (>=60); GFR NON AFRICAN AMERICAN 55 ML/MIN (>=60); GLUCOSE, SERUM 87 MG/DL (60-99); POTASSIUM, SERUM 4.5 MMOL/L (3.5-5.3); SODIUM, SERUM 142 MMOL/L (135-148)
[2016-06-17 05:33] LABS: CO2 (CARBON DIOXIDE) 27 MMOL/L (24-34)
[2016-06-18 04:46] LABS: BASOPHILS 0.6 %; BASOPHILS ABSOLUTE 0.03 10/3/uL (0.0-0.16); EOSINOPHILS 1.1 %; EOSINOPHILS ABSOLUTE 0.05 10/3/uL (0.0-0.53); HEMOGLOBIN 10.7 g/dL (13.6-17.8); IMMATURE GRANULOCYTES 0.4 %; IMMATURE GRANULOCYTES ABSOLUTE 0.02 10/3/uL (0.0-0.11); LYMPHOCYTES 13.8 %; LYMPHOCYTES ABSOLUTE 0.64 10/3/uL (0.67-4.30); MEAN CORPUS HGB CONC 32.4 g/dL (32.0-36.0); MEAN CORPUSCULAR HEMOGLOB 30.3 pg (26.0-34.0); MEAN CORPUSCULAR VOLUME 93.5 fL (80-100); MEAN PLATELET VOLUME 9.4 fL (9.2-13.0); MONOCYTES 9.9 %; MONOCYTES ABSOLUTE 0.46 10/3/uL (0.21-1.20); NEUTROPHILS 74.2 %; NEUTROPHILS ABSOLUTE 3.43 10/3/uL (2.02-8.40); PLATELET COUNT 216 10/3/uL (150-400); RBC DISTRIBUTION WIDTH 19.2 % (12.0-16.0); RED CELL COUNT 3.53 10/6/uL (4.7-6.1); WHITE BLOOD CELLS 4.6 10/3/uL (4.5-10.5)
[2016-06-18 04:47] LABS: MANUAL DIFF NO %
[2016-06-18 05:00] LABS: BUN (BLOOD UREA NITROGEN) 23 MG/DL (6-23); CALCIUM, SERUM 8.1 MG/DL (8.5-10.4); CHLORIDE, SERUM 110 MMOL/L (96-112); CO2 (CARBON DIOXIDE) 29 MMOL/L (24-34); CREATININE 1.28 MG/DL (0.70-1.30); GFR AFRICAN AMERICAN 64 ML/MIN (>=60); GFR NON AFRICAN AMERICAN 56 ML/MIN (>=60); GLUCOSE, SERUM 93 MG/DL (60-99); POTASSIUM, SERUM 4.7 MMOL/L (3.5-5.3); SODIUM, SERUM 144 MMOL/L (135-148)
[2016-06-19 05:55] LABS: BASOPHILS 0.6 %; BASOPHILS ABSOLUTE 0.03 10/3/uL (0.0-0.16); EOSINOPHILS 1.3 %; EOSINOPHILS ABSOLUTE 0.06 10/3/uL (0.0-0.53); HEMATOCRIT 33.2 % (40.0-51.0); HEMOGLOBIN 10.6 g/dL (13.6-17.8); LYMPHOCYTES 11.3 %; LYMPHOCYTES ABSOLUTE 0.53 10/3/uL (0.67-4.30); MEAN CORPUS HGB CONC 31.9 g/dL (32.0-36.0); MEAN CORPUSCULAR HEMOGLOB 30.4 pg (26.0-34.0); MEAN CORPUSCULAR VOLUME 95.1 fL (80-100); MEAN PLATELET VOLUME 9.5 fL (9.2-13.0); MONOCYTES 9.9 %; MONOCYTES ABSOLUTE 0.46 10/3/uL (0.21-1.20); NEUTROPHILS 76.9 %; NEUTROPHILS ABSOLUTE 3.59 10/3/uL (2.02-8.40); PLATELET COUNT 195 10/3/uL (150-400); RBC DISTRIBUTION WIDTH 18.9 % (12.0-16.0); RED CELL COUNT 3.49 10/6/uL (4.7-6.1); WHITE BLOOD CELLS 4.7 10/3/uL (4.5-10.5)
[2016-06-19 06:01] LABS: MANUAL DIFF NO %
[2016-06-19 06:05] LABS: BUN (BLOOD UREA NITROGEN) 21 MG/DL (6-23); CALCIUM, SERUM 7.8 MG/DL (8.5-10.4); CHLORIDE, SERUM 110 MMOL/L (96-112); CO2 (CARBON DIOXIDE) 26 MMOL/L (24-34); CREATININE 1.12 MG/DL (0.70-1.30); GFR AFRICAN AMERICAN 76 ML/MIN (>=60); GFR NON AFRICAN AMERICAN 65 ML/MIN (>=60); GLUCOSE, SERUM 88 MG/DL (60-99); SODIUM, SERUM 141 MMOL/L (135-148)
[2016-06-20 05:30] LABS: BASOPHILS 0.7 %; BASOPHILS ABSOLUTE 0.03 10/3/uL (0.0-0.16); EOSINOPHILS 1.1 %; EOSINOPHILS ABSOLUTE 0.05 10/3/uL (0.0-0.53); HEMATOCRIT 33.5 % (40.0-51.0); HEMOGLOBIN 10.9 g/dL (13.6-17.8); IMMATURE GRANULOCYTES 0.2 %; IMMATURE GRANULOCYTES ABSOLUTE 0.01 10/3/uL (0.0-0.11); LYMPHOCYTES 12.8 %; LYMPHOCYTES ABSOLUTE 0.56 10/3/uL (0.67-4.30); MEAN CORPUS HGB CONC 32.5 g/dL (32.0-36.0); MEAN CORPUSCULAR HEMOGLOB 30.4 pg (26.0-34.0); MEAN CORPUSCULAR VOLUME 93.3 fL (80-100); MEAN PLATELET VOLUME 10.9 fL (9.2-13.0); MONOCYTES 10.6 %; MONOCYTES ABSOLUTE 0.46 10/3/uL (0.21-1.20); NEUTROPHILS 74.6 %; NEUTROPHILS ABSOLUTE 3.25 10/3/uL (2.02-8.40); RED CELL COUNT 3.59 10/6/uL (4.7-6.1); WHITE BLOOD CELLS 4.4 10/3/uL (4.5-10.5)
[2016-06-20 05:31] LABS: MANUAL DIFF NO %; PLATELET COUNT 129 10/3/uL (150-400)
[2016-06-20] MEDS ORDERED: VANCOCIN HCL125 MG PO (15:38)
[2016-08-01] MEDS ORDERED: PACERONE100 MG PO (11:52)
[2016-08-01] MEDS ORDERED: PRILO PO (11:52)
== END 2016-06-20 16:13 | disposition home or self-care (01) | DRG 371 ==
LOC: 4EA 13:50
PROVIDERS: Nurse Practitioner Family
DX: A04.7 Enterocolitis due to Clostridium difficile (principal); E43 Unspecified severe protein-calorie malnutrition; J96.10 Chronic respiratory failure, unspecified whether with hypoxia or hypercapnia; J90 Pleural effusion, not elsewhere classified; I95.9 Hypotension, unspecified; J44.9 Chronic obstructive pulmonary disease, unspecified; N18.3 Chronic kidney disease, stage 3 (moderate); Z68.1 Body mass index [BMI] 19.9 or less, adult; D3A.8 Other benign neuroendocrine tumors; I12.9 Hypertensive chronic kidney disease with stage 1 through stage 4 chronic kidney disease, or unspecified chronic kidney disease
CPT/HCPCS: 80048; 80053; 82533; 83735; 83880; 84100; 84439; 84443; 85025; 85610; 85730; 87328; 87329; 87493; 87493-59; 89055; A9270-GY; J2405

== ENCOUNTER 2016-08-02 10:45 | Day surgery (SDC) | payer MEDICARE ==
--- NOTE | ~2016-08-02 | OP ---
Record Of Operation [facility] [address] [place]. [address] NAME: SAMMI BLANCAS JR : 41 STATUS : REG [facility] PAT#: [id number] AGE: 70 ADM/REG DATE : 08/02/16 MR#: [id number] REPORT SERV DATE: 08/02/16 DICTATED BY: JUAN RAMON LIVE DATE: 08/02/16 REPORT STATUS : Draft TRANSCRIBED BY: DANO DATE: 08/02/16 DATE OF PROCEDURE: 08/02/2016 TIME: 12 o'clock. PROCEDURE: Ultrasound guided left-sided Thoracentesis INDICATION: [id number] left-sided pleural effusion. PROCEDURE MAINTENANCE AND ENGINEERING MANAGER: Gibson Live PA-C. CONSENT: Consent was obtained from the patient prior to the procedure. Diagnostic and therapeutic indications for thoracentesis were discussed as well as risks including life- threatening bleeding, pneumothorax, and even the possible necessity of chest tube placement. Benefits and alternatives were explained at length. Prior to the procedure, imaging studies were reviewed with Dr. Gimenez who agreed with the indication to proceed with thoracentesis. Dr. Gimenez was present in the room. PROCEDURE SUMMARY: A time out was performed verifying correct patient, procedure, site, and positioning. The patient's left side was prepped and draped in a sterile manner using chlorhexidine scrub after the appropriate level was percussed and confirmed by ultrasound. U/S images were obtained and placed within the chart. 2% lidocaine with epinephrine was then used to anesthetize the region. A finder needle was then used to aspirate serosanguinous pleural fluid. A 10-blade scalpel was then used to make a small incision. The thoracentesis catheter was then threaded into the pleural space without difficulty. The patient had 1 L serosanguinous fluid removed. The patient's blood pressure was closely monitored throughout the procedure. He did have full documented hypotension, but remained asymptomatic. Serial checks in his blood pressure confirmed asymptomatic hypotension and was thought best at this time to end the procedure early. Of note, repeat ultrasound imaging of the posterior thorax did suggest that there may be some degree of lung entrapment occurring. A postprocedural chest x-ray was obtained, which confirmed this finding. No immediate complications were noted during the procedure. A post-procedure chest x-ray is pending at the time of this dictation. The fluid will be sent for several studies. ESTIMATED BLOOD LOSS: Minimal Note: The patient was offered overnight observation for his hypotension. He refused inpatient admittance. A long conversation ensued with the patient as well as his and daughter regarding end of life issues. There was a 30 minute discussion on this topic. At the end of this discussion, the patient again confirmed his desire to transition home. He was unable to make any decisions regarding possible transition to hospice care. The previous information and findings was relayed to Dr. Gimenez who is in agreement. GBS/MODL Record Of [place] [address] [place]. [address] NAME: SAMMI BLANCAS JR : 41 STATUS : REG [facility] PAT#: [id number] AGE: 70 ADM/REG DATE : 08/02/16 MR#: [id number] REPORT SERV DATE: 08/02/16 DICTATED BY: JUAN RAMON LIVE DATE: 08/02/16 REPORT STATUS : Draft TRANSCRIBED BY: DANO DATE: 08/02/16 Juan Ramon Live PA-C / [id number] CC: PARKER Spencer M.D.
[~2016-08-02 10:45] MED LIST changes: +PACERONE100 MG PO; +PRILO PO; +VANCOCIN HCL125 MG PO
[2016-08-02 11:27] LABS: INTERNATIONAL NORMAL RATI 1.5 UNITS (-); PROTIME (NOT ORD) 17.9 SEC (12.0-14.5)
[2016-08-02 16:08] LABS: GLUCOSE BODY FL (NOT ORD) 75 MG/DL; LDH BODY FLUID (NOT ORD) 54 U/L; PROTEIN BODY FLUID 1.7 G/DL
[2016-08-02 16:10] LABS: BODY FLUID RBC (NOT ORD) 10301 /MM3
[2016-08-02 16:56] LABS: BD FL LYMPH (NOT ORD) 32 %; BD FL SOURCE (NOT ORD) PLUERAL; BF BASO (NOT OF) 0 %; BF LARGE MONONUCLEAR 61 %; BODY FLUID EOS (NOT ORD) 1 %; BODY FLUID SEG (NOT ORD) 6 %
[2016-08-04 13:28] LABS: BF TOTAL CELL CT (NOT ORD 226 /MM3
== END 2016-08-02 23:59 | disposition home health service (06) ==
LOC: DMU 10:45
PROVIDERS: Physician Assistant Medical
PROC: BB4BZZZ Ultrasonography of Pleura (ICD-10-PCS; 2016-08-02)
PROC: 0W9B3ZZ Drainage of Left Pleural Cavity, Percutaneous Approach (ICD-10-PCS; principal; 2016-08-02 12:00)
DX: J90 Pleural effusion, not elsewhere classified (principal); E34.0 Carcinoid syndrome; R63.0 Anorexia; R53.83 Other fatigue; Z79.899 Other long term (current) drug therapy; Z79.891 Long term (current) use of opiate analgesic; Z88.0 Allergy status to penicillin; Z87.442 Personal history of urinary calculi; Z98.890 Other specified postprocedural states; Z87.891 Personal history of nicotine dependence
CPT/HCPCS: 71010; 82945; 83615; 83986; 84157; 85049; 85610; 87015; 87070; 87102; 87116; 87205; 88112; 88305; 89051